=== PATIENT | female | born 1955 | race Caucasian/White ===

== ENCOUNTER 2023-01-19 06:21 | Inpatient (IN) ==
[2023-01-19] MEDS ORDERED: DUONEB 0.5 MG/3 MG (3 mL) NEB ONE ×3 (06:24→08:52)
--- NOTE | 2023-01-19 06:24 | DR.SOBA ---
HPI Time Seen Time Seen by Provider: 01/19/23 06:24 HPI Comment HPI Comment: 67 y/o with copd on chronic oxygen usually at 2lpm developed acutely worsening sob earlier this morning upon awakening from sleep; daughter says she's had a slight cough and started using theraflu two days ago; she admits to some wheezing and body aches as well; no fever, chills, cp, abd pain, n/v/d she's turned up oxygen to 3 lpm and drops to 77% while getting into ER room ROS Review of Systems Constitutional: No Symptoms Reported Eyes: No Symptoms Reported ENTM: No Symptoms Reported Respiratoy: See HPI Cardiovascular: No Symptoms Reported Gastrointestinal/Abdominal: No Symptoms Reported Genitourinary: No Symptoms Reported Neurological: No Symptoms Reported Musculoskeletal: See HPI and Muscle Pain Integumentary: No Symptoms Reported Hematologic/Lymphatic: No Symptoms Reported Endocrine: No Symptoms Reported Psychiatric: No Symptoms Reported PE Vital Signs Vitals: Vital Signs Temperature 99.3 F Pulse Rate 95 Pulse Rate 89 Pulse Rate 88 Pulse Rate 89 Pulse Rate 92 Pulse Rate 90 Pulse Rate 90 Pulse Rate 95 Pulse Rate 100 Respiratory Rate 32 Blood Pressure 127/63 Blood Pressure 128/63 Blood Pressure 145/66 O2 Sat by Pulse Oximetry 86 O2 Sat by Pulse Oximetry 90 O2 Sat by Pulse Oximetry 90 O2 Sat by Pulse Oximetry 91 O2 Sat by Pulse Oximetry 90 O2 Sat by Pulse Oximetry 93 O2 Sat by Pulse Oximetry 95 O2 Sat by Pulse Oximetry 91 O2 Sat by Pulse Oximetry 76 General Limitations: No Limitations General Appearance: Alert and In No Apparent Distress (nasal oxygen in place) Head Head Exam: Normal Inspection Eyes Eye exam: Normal Appearance ENT ENT Exam: Normal Exam Neck Neck Exam: Normal Inspection Chest Chest Inspection: Normal Inspection Respiratory Respiratory Exam: Bilateral: Decreased Breath Sounds, Left: Wheezing (scattered), Upper: Wheezing (scattered) and Lower: Wheezing (scattered) Cardiovascular Cardiovascular Exam: Regular Rate and Normal Rhythm Abdominal Exam Abdominal Exam: Normal Inspection, Normal Bowel Sounds and Soft Extremities Extremities Exam: Normal Inspection Back Back Exam: Normal Inspection Neurologic Neurological Exam: Alert and Oriented X3 Psychiatric Psychiatric Exam: Normal Affect and Normal Mood Skin Skin Exam: Warm, Dry, Intact and Normal Color COURSE Treatment Treatment: pt unable to lay flat enough to get ct Reevaluation 1st: Worsened (sats down to 88% on 5L) Consultation Call Returned: 07:50 (Dr De Dios accepts admission) ROR Labs Reviewed Laboratory Results Reviewed?: Yes 01/19/23 06:36 01/19/23 06:36 Laboratory: WBC 17.1 X10^3/uL (3.6-10.0) H 01/19/23 06:36 RBC 3.59 X10^6/uL (3.5-5.4) 01/19/23 06:36 Hgb 10.3 g/dL (12.0-16.0) L 01/19/23 06:36 Hct 31.7 % (36.0-47.0) L 01/19/23 06:36 MCV 88.3 fL (80.0-100.0) 01/19/23 06:36 MCH 28.7 pg (27.0-34.0) 01/19/23 06:36 MCHC 32.5 g/dL (33.0-35.0) L 01/19/23 06:36 RDW 16.1 % (11.6-16.5) 01/19/23 06:36 Plt Count 275 X10^3/uL (150.0-450.0) 01/19/23 06:36 MPV 7.7 fL (7.4-11.0) 01/19/23 06:36 Neut % (Auto) 89.1 % (42.0-75.0) H 01/19/23 06:36 Lymph % (Auto) 5.0 % (21.0-51.0) L 01/19/23 06:36 [place] % (Auto) 3.5 % (0.0-13.0) 01/19/23 06:36 Eos % (Auto) 1.6 % (0.9-2.9) 01/19/23 06:36 Baso % (Auto) 0.8 % (0.2-1.0) 01/19/23 06:36 Neut # (Auto) 15.2 x10^3/uL (2.2-4.8) H 01/19/23 06:36 Lymph # (Auto) 0.8 X10^3/uL (1.3-2.9) L 01/19/23 06:36 [place] # (Auto) 0.6 x10^3/uL (0.3-0.8) 01/19/23 06:36 Eos # (Auto) 0.3 x10^3/uL (0.0-0.2) H 01/19/23 06:36 Baso # (Auto) 0.1 X10^3/uL (0.0-0.1) 01/19/23 06:36 Absolute Nucleated RBC 0.3 /100WBC 01/19/23 06:36 D-Dimer 0.67 ug/ml (0.0-0.57) H 01/19/23 06:36 Sodium 138 mmol/L (136-145) 01/19/23 06:36 Corrected Sodium 140 mmol/L (136-145) 01/19/23 06:36 Potassium 4.8 mmol/L (3.5-5.1) 01/19/23 06:36 Chloride 100 mmol/L (98-107) 01/19/23 06:36 Carbon Dioxide 28.2 mmol/L (21-32) 01/19/23 06:36 BUN 29 mg/dL (7-18) H 01/19/23 06:36 Creatinine 1.79 mg/dL (0.55-1.02) H 01/19/23 06:36 Est GFR (MDRD) Af Amer 36 (>60) L 01/19/23 06:36 Est GFR (MDRD) Non-Af 30 (>60) L 01/19/23 06:36 Glucose 170 mg/dL (65-99) H 01/19/23 06:36 Lactic Acid 0.6 mmol/L (0.4-2.0) 01/19/23 07:11 Calcium 8.6 mg/dL (8.5-10.1) 01/19/23 06:36 Corrected Calcium 9.2 mg/dL (8.5-10.1) 01/19/23 06:36 Total Bilirubin 0.30 mg/dL (0.2-1.0) 01/19/23 06:36 AST 11 Units/L (15-37) L 01/19/23 06:36 ALT 20 Units/L (12-78) 01/19/23 06:36 Alkaline Phosphatase 64 Units/L (46-116) 01/19/23 06:36 Total Protein 6.8 g/dL (6.4-8.2) 01/19/23 06:36 Albumin 3.2 g/dL (3.4-5.0) L 01/19/23 06:36 Globulin 3.6 g/dL (2.5-4.5) 01/19/23 06:36 Albumin/Globulin Ratio 0.9 Ratio (1.1-2.1) L 01/19/23 06:36 SARS-CoV-2 (PCR) Negative (NEGATIVE) 01/19/23 06:20 Influenza Type A (PCR) Negative (NEGATIVE) 01/19/23 06:20 Influenza Type B (PCR) Negative (NEGATIVE) 01/19/23 06:20 RSV (PCR) Negative (NEGATIVE) 01/19/23 06:20 Other Results Comments: Pt unable to lay flat enough to get ct; both she and family member advised of admission. XRAY XRAY Interpreted by: Radiologist X-ray Results: pcxr: Cardiomegaly. Patchy bibasilar opacities may represent atelectasis or pneumonia. Blunted right costophrenic sulcus can be seen with small pleural effusion or pleuro-parynchemal scarring. Opioid Opioid Risk Tool Total: 0 Total Score Risk Category: Low Risk Copyright: [facility] predicting aberrant behaviors Discharge Plan Diagnosis Discharge Problem: COPD exacerbation, Hypoxia Sepsis Qualifiers: Sepsis type: sepsis due to unspecified organism Sepsis acute organ dysfunction status: with acute organ dysfunction Severe sepsis acute organ dysfunction type: acute respiratory failure Acute respiratory failure type: with hypoxia Pneumonia Qualifiers: Pneumonia type: due to unspecified organism Laterality: bilateral Lung location: lower lobe of lung Qualified Code(s): J18.9 - Pneumonia, unspecified organism Discharge Plan Patient Disposition: ADMITTED INPATIENT Condition: Stable Health Concerns: Post Hospitalization: new medications and changes needed to prevent readmission or further decline. Pt educated and given instructions on all concerns. Plan of Treatment: Continue with present treatment and follow up plan. Pt is to keep follow up appointment as instructed and take medications as ordered. Follow ups/Referrals Follow ups/Referrals: DORINDAD,None [Primary Care Provider] - 3 days
[2023-01-19 06:31] VITALS: BMI 42.5
[2023-01-19] MEDS ORDERED: SOLU-Medrol 125 MG VIAL ONE (06:32)
[2023-01-19] MEDS ORDERED: SOLU-Medrol 125 MG VIAL IVP ONE (06:36)
[2023-01-19 06:49] LABS: BASOPHILS # (AUTO) 0.1 X10^3/uL (0.0-0.1); BASOPHILS % (AUTO) 0.8 % (0.2-1.0); EOSINOPHILS # (AUTO) 0.3 x10^3/uL (0.0-0.2); EOSINOPHILS % (AUTO) 1.6 % (0.9-2.9); HEMATOCRIT 31.7 % (36.0-47.0); HEMOGLOBIN 10.3 g/dL (12.0-16.0); LYMPHOCYTES # (AUTO) 0.8 X10^3/uL (1.3-2.9); MEAN CORPUSCULAR HEMOGLOBIN 28.7 pg (27.0-34.0); MEAN CORPUSCULAR HGB CONC 32.5 g/dL (33.0-35.0); MEAN CORPUSCULAR VOLUME 88.3 fL (80.0-100.0); MEAN PLATELET VOLUME 7.7 fL (7.4-11.0); MONOCYTES # (AUTO) 0.6 x10^3/uL (0.3-0.8); MONOCYTES % (AUTO) 3.5 % (0.0-13.0); NEUTROPHILS # (AUTO) 15.2 x10^3/uL (2.2-4.8); NEUTROPHILS % (AUTO) 89.1 % (42.0-75.0); PLATELET COUNT 275 X10^3/uL (150.0-450.0); RED BLOOD COUNT 3.59 X10^6/uL (3.5-5.4); RED CELL DISTRIBUTION WIDTH 16.1 % (11.6-16.5); WHITE BLOOD COUNT 17.1 X10^3/uL (3.6-10.0)
[2023-01-19] MEDS ORDERED: ZITHROMAX INJ 500 MG VIAL 500 MG in NS 250 ML IV 250 ML IV SCH (06:59)
--- NOTE | 2023-01-19 06:59 | RAD ---
HISTORYPATIENT C/O INCREASED SHORTNESS OF BREATH THAT STARTED THIS MORNING AROUND 3AM. PT DENIES CHEST PAIN OR BODY ACHESSTUDYCHEST, 1 VIEWCOMPARISONNoneTECHNIQUEPA or AP view of the chestFINDINGSPatient is rotated. Cardiac silhouette is enlarged. Mediastinal contour is likely normal limited given rotation. There is blunting of the right costophrenic sulcus. Patchy bibasilar opacities are present. No pneumothorax. Soft tissue attenuation limits evaluation.IMPRESSIONCardiomegaly.Patchy bibasilar opacities may represent atelectasis or pneumonia. Blunted right costophrenic sulcus can be seen with small pleural effusion or pleuro-parynchemal scarring.Electronically signed by: Jamie Deluna (Jan 19, 2023 06:58:07)
[2023-01-19] MEDS ORDERED: NS 250 ML IV 250 ML IV ONE (07:02)
[2023-01-19] MEDS ORDERED: ZITHROMAX INJ 500 MG VIAL IV ONE (07:02)
[2023-01-19 07:06] LABS: ALBUMIN 3.2 g/dL (3.4-5.0); CALCIUM 8.6 mg/dL (8.5-10.1); CARBON DIOXIDE 28.2 mmol/L (21-32); COR CA(FOR HYPOALB) 9.2 mg/dL (8.5-10.1); CREATININE 1.79 mg/dL (0.55-1.02); POTASSIUM 4.8 mmol/L (3.5-5.1); TOTAL PROTEIN 6.8 g/dL (6.4-8.2)
[2023-01-19] MEDS ORDERED: NS 1,000 ML IV 1,000 ML IV ONE (07:29)
[2023-01-19] MEDS ORDERED: NS 1,000 ML IV 1,000 ML ONE (07:32)
[2023-01-19] MEDS ORDERED: NS 1,000 ML IV 1,000 ML IV SCH (08:00)
[2023-01-19] MEDS ORDERED: CONSULT PHARMACY - POTASSIUM & MAGNESIUM XX SCH (08:00)
[2023-01-19] MEDS ORDERED: PULMICORT NEB TX 0.5 MG NEB ONE (08:52)
[2023-01-19 09:00] LABS: ABG BASE EXCESS 1.4 mmol/L (-2.0-2.0); ABG HCO3 29.3 mmol/L (22-26)
[2023-01-19] MEDS: PULMICORT NEB TX 0.5 MG NEB SCH ×2 (09:00→20:48)
[2023-01-19] MEDS: DUONEB 0.5 MG/3 MG (3 mL) NEB SCH ×4 (09:00→20:48)
[2023-01-19 09:01] LABS: ABG ALLEN TEST POS
[2023-01-19] MEDS ORDERED: ZOSYN VIAL 4.5 GRAMS 4.5 G in NS 100 ML IV + SPIKE MINIBAG* 100 ML IV SCH (10:00)
[2023-01-19] MEDS ORDERED: NS 1/2 1,000 ML IV 1,000 ML IV ONE ×2 (10:18→20:13)
[2023-01-19] MEDS: VSL#3 PO SCH (10:32)
[2023-01-19] MEDS: BENICAR PO SCH (10:32)
[2023-01-19] MEDS: COREG TAB 12.5 MG PO SCH ×2 (10:33→20:35)
[2023-01-19] MEDS: DEMADEX PO SCH (10:33)
[2023-01-19] MEDS: ALDACTONE TAB 25 MG PO SCH (10:33)
[2023-01-19] MEDS: ARIMIDEX PO SCH (10:33)
[2023-01-19] MEDS: NORVASC TAB 5 MG PO SCH (10:33)
[2023-01-19] MEDS: PREDNISONE TAB 10 MG PO SCH (10:34)
[2023-01-19] MEDS: CATAPRES TAB 0.2 MG PO SCH ×2 (10:34→20:35)
[2023-01-19] MEDS: NS 1/2 1,000 ML IV 1,000 ML IV SCH (10:35)
[2023-01-19] MEDS: FORTAZ or TAZICEF VIAL INJ 1 G in NS 100 ML IV 100 ML IV SCH ×2 (10:36→20:35)
[2023-01-19] MEDS: LEVAQUIN PREMIX IV 750 MG 750 MG/150 ML BAG IV SCH (10:37)
[2023-01-19] MEDS: TRADJENTA PO SCH (11:43)
--- NOTE | 2023-01-19 15:28 | RAD ---
HISTORYPNEUMONIA UNABLE TO POSTION PATIENT FOR A FAVORABLE LATERALSTUDYCHEST, 1 VIEWCOMPARISONRadiograph from earlier the same date.FINDINGSCardiac silhouette size is stable, accounting for differences in positioning. Patchy bibasilar opacities are similar to the prior. There is unchanged blunting of the right costophrenic sulcus. No significant pneumothorax.IMPRESSIONNo significant change from the prior.Electronically signed by: SHORTY BROWER (Jan 19, 2023 15:26:38)
[2023-01-19] MEDS ORDERED: NovoLIN R (or HumuLIN R) ONE (16:03)
[2023-01-19] MEDS: NovoLIN R (or HumuLIN R) SUBCUT PRN ×2 (16:31→20:36)
[2023-01-19] MEDS: LOVENOX INJ 40 MG SYR SC SCH (16:31)
[2023-01-19] MEDS: SNACK - Diabetic Appropriate PO SCH (20:35)
[2023-01-19] MEDS: LIPITOR TAB 10 MG PO SCH (20:35)
[2023-01-19] MEDS: SINGULAIR TAB 10 MG PO SCH (20:35)
[2023-01-20] MEDS: DUONEB 0.5 MG/3 MG (3 mL) NEB SCH ×6 (01:14→20:34)
[2023-01-20] MEDS: NS 1/2 1,000 ML IV 1,000 ML IV SCH (04:48)
[2023-01-20 05:08] LABS: BASOPHILS % (AUTO) 0.1 % (0.2-1.0); HEMATOCRIT 28.4 % (36.0-47.0); HEMOGLOBIN 9.4 g/dL (12.0-16.0); LYMPHOCYTES # (AUTO) 0.8 X10^3/uL (1.3-2.9); MEAN CORPUSCULAR HEMOGLOBIN 28.9 pg (27.0-34.0); MEAN CORPUSCULAR VOLUME 87.6 fL (80.0-100.0); MEAN PLATELET VOLUME 7.8 fL (7.4-11.0); NEUTROPHILS # (AUTO) 14.7 x10^3/uL (2.2-4.8); NEUTROPHILS % (AUTO) 88.9 % (42.0-75.0); PLATELET COUNT 294 X10^3/uL (150.0-450.0); RED BLOOD COUNT 3.24 X10^6/uL (3.5-5.4); RED CELL DISTRIBUTION WIDTH 15.6 % (11.6-16.5); WHITE BLOOD COUNT 16.6 X10^3/uL (3.6-10.0)
[2023-01-20 05:18] LABS: ALBUMIN 2.8 g/dL (3.4-5.0); CALCIUM 8.1 mg/dL (8.5-10.1); CARBON DIOXIDE 28.6 mmol/L (21-32); COR CA(FOR HYPOALB) 9.1 mg/dL (8.5-10.1); CREATININE 1.64 mg/dL (0.55-1.02); POTASSIUM 4.8 mmol/L (3.5-5.1); TOTAL PROTEIN 6.3 g/dL (6.4-8.2)
[2023-01-20] MEDS ORDERED: SOLU-Medrol 125 MG VIAL IVP ONE (07:00)
[2023-01-20] MEDS: PULMICORT NEB TX 0.5 MG NEB SCH ×2 (08:13→20:34)
[2023-01-20] MEDS ORDERED: NS 1/2 1,000 ML IV 1,000 ML IV ONE (08:31)
[2023-01-20] MEDS: NORVASC TAB 5 MG PO SCH (08:43)
[2023-01-20] MEDS: FORTAZ or TAZICEF VIAL INJ 1 G in NS 100 ML IV 100 ML IV SCH ×2 (08:43→20:05)
[2023-01-20] MEDS: BENICAR PO SCH (08:43)
[2023-01-20] MEDS: ARIMIDEX PO SCH (08:43)
[2023-01-20] MEDS: PREDNISONE TAB 10 MG PO SCH (08:43)
[2023-01-20] MEDS: CATAPRES TAB 0.2 MG PO SCH ×2 (08:43→20:05)
[2023-01-20] MEDS: COREG TAB 12.5 MG PO SCH ×2 (08:43→20:05)
[2023-01-20] MEDS: LOVENOX INJ 40 MG SYR SC SCH (08:43)
[2023-01-20] MEDS: ALDACTONE TAB 25 MG PO SCH (08:43)
[2023-01-20] MEDS: DEMADEX PO SCH (08:43)
[2023-01-20] MEDS: VSL#3 PO SCH (08:44)
[2023-01-20] MEDS: TRADJENTA PO SCH (08:44)
[2023-01-20] MEDS ORDERED: ZITHROMAX INJ 500 MG VIAL 500 MG in NS 250 ML IV 250 ML IV SCH (09:00)
[2023-01-20 09:17] LABS: RETICULOCYTE % 3.12 % (0.8-2.2)
[2023-01-20] MEDS: LR 1,000 ML IV 1,000 ML IV SCH ×3 (09:26→22:54)
[2023-01-20] MEDS: NovoLIN R (or HumuLIN R) SUBCUT PRN (11:17)
[2023-01-20] MEDS ORDERED: PEPCID TAB 20 MG PO SCH (20:00)
[2023-01-20] MEDS: LIPITOR TAB 10 MG PO SCH (20:05)
[2023-01-20] MEDS: SINGULAIR TAB 10 MG PO SCH (20:05)
[2023-01-20] MEDS: SNACK - Diabetic Appropriate PO SCH (20:08)
[2023-01-21] MEDS ORDERED: STERILE WATER IRRIGATION IR ONE (00:13)
[2023-01-21] MEDS: DUONEB 0.5 MG/3 MG (3 mL) NEB SCH ×7 (00:26→20:15)
[2023-01-21] MEDS: LR 1,000 ML IV 1,000 ML IV SCH ×3 (05:33→18:44)
[2023-01-21 05:40] LABS: BASOPHILS # (AUTO) 0.2 X10^3/uL (0.0-0.1); BASOPHILS % (AUTO) 1.4 % (0.2-1.0); EOSINOPHILS # (AUTO) 0.2 x10^3/uL (0.0-0.2); EOSINOPHILS % (AUTO) 1.3 % (0.9-2.9); HEMATOCRIT 29.2 % (36.0-47.0); HEMOGLOBIN 9.6 g/dL (12.0-16.0); LYMPHOCYTES # (AUTO) 1.3 X10^3/uL (1.3-2.9); LYMPHOCYTES % (AUTO) 10.2 % (21.0-51.0); MEAN CORPUSCULAR HEMOGLOBIN 28.7 pg (27.0-34.0); MEAN CORPUSCULAR HGB CONC 32.8 g/dL (33.0-35.0); MEAN CORPUSCULAR VOLUME 87.5 fL (80.0-100.0); MEAN PLATELET VOLUME 8.2 fL (7.4-11.0); MONOCYTES # (AUTO) 0.8 x10^3/uL (0.3-0.8); MONOCYTES % (AUTO) 5.9 % (0.0-13.0); NEUTROPHILS # (AUTO) 10.6 x10^3/uL (2.2-4.8); NEUTROPHILS % (AUTO) 81.2 % (42.0-75.0); PLATELET COUNT 289 X10^3/uL (150.0-450.0); RED BLOOD COUNT 3.34 X10^6/uL (3.5-5.4); RED CELL DISTRIBUTION WIDTH 16.1 % (11.6-16.5); WHITE BLOOD COUNT 13.1 X10^3/uL (3.6-10.0)
[2023-01-21 05:58] LABS: ALBUMIN 2.9 g/dL (3.4-5.0); CALCIUM 8.1 mg/dL (8.5-10.1); CARBON DIOXIDE 30.2 mmol/L (21-32); CREATININE 1.59 mg/dL (0.55-1.02); POTASSIUM 4.8 mmol/L (3.5-5.1); TOTAL PROTEIN 6.4 g/dL (6.4-8.2)
[2023-01-21] MEDS: PULMICORT NEB TX 0.5 MG NEB SCH ×3 (07:53→20:15)
[2023-01-21] MEDS: CATAPRES TAB 0.2 MG PO SCH ×2 (09:36→21:13)
[2023-01-21] MEDS: NORVASC TAB 5 MG PO SCH (09:36)
[2023-01-21] MEDS: LEVAQUIN PREMIX IV 750 MG 750 MG/150 ML BAG IV SCH (09:36)
[2023-01-21] MEDS: FORTAZ or TAZICEF VIAL INJ 1 G in NS 100 ML IV 100 ML IV SCH ×2 (09:36→21:13)
[2023-01-21] MEDS: VSL#3 PO SCH (09:36)
[2023-01-21] MEDS: BENICAR PO SCH (09:36)
[2023-01-21] MEDS: DEMADEX PO SCH (09:36)
[2023-01-21] MEDS: PEPCID TAB 20 MG PO SCH (09:36)
[2023-01-21] MEDS: ARIMIDEX PO SCH (09:36)
[2023-01-21] MEDS: COREG TAB 12.5 MG PO SCH ×2 (09:37→21:13)
[2023-01-21] MEDS: ALDACTONE TAB 25 MG PO SCH (09:37)
[2023-01-21] MEDS: LOVENOX INJ 40 MG SYR SC SCH (09:37)
[2023-01-21] MEDS: PREDNISONE TAB 10 MG PO SCH (09:37)
[2023-01-21] MEDS: TRADJENTA PO SCH (09:38)
[2023-01-21] MEDS: NovoLIN R (or HumuLIN R) SUBCUT PRN ×3 (12:16→21:30)
[2023-01-21] MEDS: SNACK - Diabetic Appropriate PO SCH (20:30)
[2023-01-21] MEDS: LIPITOR TAB 10 MG PO SCH (21:13)
[2023-01-21] MEDS: SINGULAIR TAB 10 MG PO SCH (21:13)
[2023-01-22] MEDS: DUONEB 0.5 MG/3 MG (3 mL) NEB SCH ×3 (00:24→08:45)
[2023-01-22] MEDS: LR 1,000 ML IV 1,000 ML IV SCH ×2 (03:31→09:04)
[2023-01-22 05:29] LABS: BASOPHILS # (AUTO) 0.1 X10^3/uL (0.0-0.1); BASOPHILS % (AUTO) 0.7 % (0.2-1.0); EOSINOPHILS # (AUTO) 0.2 x10^3/uL (0.0-0.2); EOSINOPHILS % (AUTO) 1.9 % (0.9-2.9); HEMATOCRIT 29.6 % (36.0-47.0); LYMPHOCYTES # (AUTO) 1.2 X10^3/uL (1.3-2.9); LYMPHOCYTES % (AUTO) 11.3 % (21.0-51.0); MEAN CORPUSCULAR HEMOGLOBIN 29.2 pg (27.0-34.0); MEAN CORPUSCULAR HGB CONC 33.6 g/dL (33.0-35.0); MEAN CORPUSCULAR VOLUME 86.9 fL (80.0-100.0); MEAN PLATELET VOLUME 7.6 fL (7.4-11.0); MONOCYTES # (AUTO) 0.8 x10^3/uL (0.3-0.8); MONOCYTES % (AUTO) 6.9 % (0.0-13.0); NEUTROPHILS # (AUTO) 8.6 x10^3/uL (2.2-4.8); NEUTROPHILS % (AUTO) 79.2 % (42.0-75.0); PLATELET COUNT 279 X10^3/uL (150.0-450.0); RED BLOOD COUNT 3.41 X10^6/uL (3.5-5.4); RED CELL DISTRIBUTION WIDTH 15.8 % (11.6-16.5); WHITE BLOOD COUNT 10.8 X10^3/uL (3.6-10.0)
[2023-01-22 05:49] LABS: ALBUMIN 2.7 g/dL (3.4-5.0); CALCIUM 8.3 mg/dL (8.5-10.1); CARBON DIOXIDE 30.5 mmol/L (21-32); COR CA(FOR HYPOALB) 9.3 mg/dL (8.5-10.1); CREATININE 1.45 mg/dL (0.55-1.02); POTASSIUM 4.5 mmol/L (3.5-5.1); TOTAL PROTEIN 6.1 g/dL (6.4-8.2)
[2023-01-22 08:24] VITALS: BP 173/85; PULSE 95; RESP 18; O2SAT 95
[2023-01-22] MEDS: PULMICORT NEB TX 0.5 MG NEB SCH (08:45)
[2023-01-22] MEDS: ARIMIDEX PO SCH (09:03)
[2023-01-22] MEDS: PEPCID TAB 20 MG PO SCH (09:03)
[2023-01-22] MEDS: NORVASC TAB 5 MG PO SCH (09:03)
[2023-01-22] MEDS: FORTAZ or TAZICEF VIAL INJ 1 G in NS 100 ML IV 100 ML IV SCH (09:03)
[2023-01-22] MEDS: COREG TAB 12.5 MG PO SCH (09:03)
[2023-01-22] MEDS: VSL#3 PO SCH (09:04)
[2023-01-22] MEDS: LOVENOX INJ 40 MG SYR SC SCH (09:04)
[2023-01-22] MEDS: ALDACTONE TAB 25 MG PO SCH (09:04)
[2023-01-22] MEDS: BENICAR PO SCH (09:04)
[2023-01-22] MEDS: PREDNISONE TAB 10 MG PO SCH (09:04)
[2023-01-22] MEDS: DEMADEX PO SCH (09:04)
[2023-01-22] MEDS: CATAPRES TAB 0.2 MG PO SCH (09:04)
[2023-01-22] MEDS: TRADJENTA PO SCH (09:08)
[2023-01-22 12:34] VITALS: TEMP 98.4
--- NOTE | 2023-01-22 22:42 | W.DIS.FURT ---
Summary of Discharge Discharge Summary of Date Date of Exam: 01/22/23 Admission Date Date of Admission: 01/19/23 Admission Diagnosis Patient Problems (Updated 01/19/23 @ 08:02 by Jenifer Aranda) Sepsis (Acute) A41.9 Pneumonia (Acute) J18.9 COPD exacerbation (Acute) J44.1 Hypoxia (Acute) R09.02 Hospital Course: Patient is a 67-year-old female admitted for pneumonia and COPD exacerbation. Her hospital treatment course included antibiotics Levaquin and Fortaz. She required supplemental oxygen via nasal cannula. Scheduled bronchodilators and prednisone. Patient responded well to treatment and symptoms significantly improved. On the day of discharge patient was back to to her baseline oxygen requirement of 2-3 L nasal cannula. Rx Levaquin and prednisone. Patient discharged in stable condition. Instructed to follow-up with PCP in 1 week. Vital Signs: Vital Signs (72 hours) 01/19/23 12:00 01/19/23 12:00 01/19/23 13:15 Temperature 97.7 F Pulse Rate 82 82 Respiratory Rate 33 H Blood Pressure 138/69 O2 Sat by Pulse Oximetry 94 L 100 Oxygen Delivery Method Oxygen Flow Rate FIO2% 01/19/23 13:00 01/19/23 13:00 01/19/23 14:00 Temperature Pulse Rate 82 89 Respiratory Rate 30 H 30 H Blood Pressure 131/68 O2 Sat by Pulse Oximetry 95 92 L Oxygen Delivery Method Oxygen Flow Rate FIO2% 01/19/23 14:00 01/19/23 15:00 01/19/23 15:00 Temperature 97.0 F L Pulse Rate 79 Respiratory Rate 30 H Blood Pressure 140/72 140/67 O2 Sat by Pulse Oximetry 92 L Oxygen Delivery Method Oxygen Flow Rate FIO2% 01/19/23 16:07 01/19/23 16:11 01/19/23 16:11 Temperature Pulse Rate 86 Respiratory Rate Blood Pressure 160/79 160/79 O2 Sat by Pulse Oximetry 94 L Oxygen Delivery Method Oxygen Flow Rate FIO2% 01/19/23 16:11 01/19/23 17:00 01/19/23 17:00 Temperature Pulse Rate 79 95 H Respiratory Rate 19 33 H Blood Pressure 167/90 O2 Sat by Pulse Oximetry 94 L 93 L Oxygen Delivery Method Oxygen Flow Rate FIO2% 01/19/23 18:00 01/19/23 18:00 01/19/23 18:02 Temperature Pulse Rate 92 H 93 H Respiratory Rate 31 H 29 H Blood Pressure 195/107 O2 Sat by Pulse Oximetry 93 L 93 L Oxygen Delivery Method Oxygen Flow Rate FIO2% 01/19/23 18:02 01/19/23 18:04 01/19/23 18:04 Temperature Pulse Rate 93 H Respiratory Rate 30 H Blood Pressure 183/108 192/119 O2 Sat by Pulse Oximetry 92 L Oxygen Delivery Method Oxygen Flow Rate FIO2% 01/19/23 19:00 01/19/23 18:53 01/19/23 18:53 Temperature Pulse Rate 91 H Respiratory Rate 33 H Blood Pressure 189/83 O2 Sat by Pulse Oximetry 93 L Oxygen Delivery Method Bi-pap Oxygen Flow Rate FIO2% 01/19/23 19:00 01/19/23 19:00 01/19/23 20:00 Temperature Pulse Rate 85 Respiratory Rate 26 H Blood Pressure 154/72 168/78 O2 Sat by Pulse Oximetry 94 L Oxygen Delivery Method Oxygen Flow Rate FIO2% 01/19/23 20:00 01/19/23 21:00 01/19/23 21:00 Temperature 97.1 F L Pulse Rate 81 87 Respiratory Rate 30 H 30 H Blood Pressure 189/86 O2 Sat by Pulse Oximetry 95 97 Oxygen Delivery Method Oxygen Flow Rate FIO2% 01/19/23 21:02 01/19/23 21:02 01/19/23 22:00 Temperature Pulse Rate 86 97 H Respiratory Rate 33 H 36 H Blood Pressure 170/87 O2 Sat by Pulse Oximetry 96 96 Oxygen Delivery Method Oxygen Flow Rate FIO2% 01/19/23 22:15 01/19/23 22:15 01/19/23 22:17 Temperature Pulse Rate 95 H 93 H Respiratory Rate 28 H 26 H Blood Pressure 189/103 O2 Sat by Pulse Oximetry 94 L 95 Oxygen Delivery Method Oxygen Flow Rate FIO2% 01/19/23 22:17 01/19/23 22:18 01/19/23 22:18 Temperature Pulse Rate 92 H Respiratory Rate 28 H Blood Pressure 189/103 192/94 O2 Sat by Pulse Oximetry 95 Oxygen Delivery Method Oxygen Flow Rate FIO2% 01/19/23 22:38 01/19/23 22:38 01/19/23 23:00 Temperature Pulse Rate 84 83 Respiratory Rate 29 H 25 H Blood Pressure 140/66 O2 Sat by Pulse Oximetry 94 L 93 L Oxygen Delivery Method Oxygen Flow Rate FIO2% 01/20/23 00:00 01/19/23 20:48 01/19/23 20:48 Temperature 97.6 F Pulse Rate 77 Respiratory Rate 26 H Blood Pressure O2 Sat by Pulse Oximetry 97 Oxygen Delivery Method Bi-pap Oxygen Flow Rate FIO2% 35 35 01/19/23 20:48 01/20/23 00:01 01/20/23 00:01 Temperature Pulse Rate 87 76 Respiratory Rate 24 Blood Pressure 133/62 O2 Sat by Pulse Oximetry 96 97 Oxygen Delivery Method Oxygen Flow Rate FIO2% 01/20/23 01:00 01/20/23 01:14 01/20/23 01:14 Temperature Pulse Rate 100 H 71 Respiratory Rate 39 H Blood Pressure O2 Sat by Pulse Oximetry 95 97 Oxygen Delivery Method Oxygen Flow Rate FIO2% 35 01/20/23 02:00 01/20/23 03:00 01/20/23 04:00 Temperature Pulse Rate 70 85 75 Respiratory Rate 18 30 H 25 H Blood Pressure O2 Sat by Pulse Oximetry 94 L 90 L 97 Oxygen Delivery Method Oxygen Flow Rate FIO2% 01/20/23 04:00 01/20/23 05:00 01/20/23 05:44 Temperature 97.6 F Pulse Rate 72 Respiratory Rate 27 H Blood Pressure 151/70 O2 Sat by Pulse Oximetry 93 L Oxygen Delivery Method Oxygen Flow Rate FIO2% 35 01/20/23 05:44 01/20/23 06:00 01/20/23 07:00 Temperature Pulse Rate 75 79 75 Respiratory Rate 26 H 18 Blood Pressure O2 Sat by Pulse Oximetry 98 97 93 L Oxygen Delivery Method Oxygen Flow Rate FIO2% 01/20/23 08:13 01/20/23 08:13 01/20/23 08:00 Temperature Pulse Rate 77 82 Respiratory Rate 26 H Blood Pressure O2 Sat by Pulse Oximetry 93 L 93 L Oxygen Delivery Method Bi-pap Oxygen Flow Rate 4 FIO2% 36 01/20/23 09:00 01/20/23 09:04 01/20/23 09:04 Temperature 97.4 F L Pulse Rate 81 93 H Respiratory Rate 25 H 32 H Blood Pressure 146/69 O2 Sat by Pulse Oximetry 93 L 93 L Oxygen Delivery Method Oxygen Flow Rate FIO2% 01/20/23 07:00 01/20/23 10:00 01/20/23 11:00 Temperature Pulse Rate 83 91 H Respiratory Rate 29 H 30 H Blood Pressure O2 Sat by Pulse Oximetry 88 L 94 L Oxygen Delivery Method Nasal Cannula Oxygen Flow Rate 4 FIO2% 01/20/23 12:00 01/20/23 12:00 01/20/23 13:00 Temperature 98.0 F Pulse Rate 75 80 Respiratory Rate 28 H 30 H Blood Pressure 138/70 O2 Sat by Pulse Oximetry 96 93 L Oxygen Delivery Method Oxygen Flow Rate FIO2% 01/20/23 14:10 01/20/23 14:10 01/20/23 14:00 Temperature Pulse Rate 99 H Respiratory Rate 40 H Blood Pressure O2 Sat by Pulse Oximetry 79 L Oxygen Delivery Method Bi-pap Oxygen Flow Rate FIO2% 35 35 01/20/23 14:15 01/20/23 14:15 01/20/23 15:00 Temperature Pulse Rate 75 70 Respiratory Rate 29 H 54 H Blood Pressure 119/67 O2 Sat by Pulse Oximetry 96 90 L Oxygen Delivery Method Oxygen Flow Rate FIO2% 01/20/23 15:38 01/20/23 15:38 01/20/23 16:00 Temperature Pulse Rate 78 70 Respiratory Rate 25 H 30 H Blood Pressure 126/65 O2 Sat by Pulse Oximetry 97 94 L Oxygen Delivery Method Oxygen Flow Rate FIO2% 01/20/23 16:00 01/20/23 17:00 01/20/23 18:00 Temperature 97.2 F L Pulse Rate 103 H 87 Respiratory Rate 35 H 22 Blood Pressure 138/69 O2 Sat by Pulse Oximetry 94 L 91 L Oxygen Delivery Method Oxygen Flow Rate FIO2% 01/20/23 19:00 01/20/23 20:34 01/20/23 20:35 Temperature Pulse Rate 93 H 83 Respiratory Rate 36 H Blood Pressure O2 Sat by Pulse Oximetry 92 L 95 Oxygen Delivery Method Nasal Cannula Oxygen Flow Rate 4 FIO2% 36 01/20/23 19:00 01/20/23 20:00 01/20/23 20:03 Temperature 97.1 F L Pulse Rate 82 85 Respiratory Rate 32 H 26 H Blood Pressure O2 Sat by Pulse Oximetry 95 94 L Oxygen Delivery Method Nasal Cannula Oxygen Flow Rate 4 FIO2% 01/20/23 20:03 01/20/23 21:00 01/20/23 22:09 Temperature Pulse Rate 105 H Respiratory Rate 39 H Blood Pressure 149/66 O2 Sat by Pulse Oximetry 92 L Oxygen Delivery Method Oxygen Flow Rate FIO2% 35 01/20/23 22:10 01/20/23 22:00 01/20/23 23:00 Temperature 97.4 F L Pulse Rate 89 63 Respiratory Rate 31 H 28 H Blood Pressure O2 Sat by Pulse Oximetry 95 96 Oxygen Delivery Method Bi-pap Oxygen Flow Rate FIO2% 35 01/21/23 00:26 01/21/23 00:27 01/21/23 01:20 Temperature Pulse Rate 85 Respiratory Rate Blood Pressure O2 Sat by Pulse Oximetry 97 Oxygen Delivery Method CPAP Bi-pap Oxygen Flow Rate FIO2% 32 35 01/21/23 01:20 01/21/23 00:00 01/21/23 00:07 Temperature 97.4 F L Pulse Rate 78 82 Respiratory Rate 29 H 39 H Blood Pressure O2 Sat by Pulse Oximetry 94 L 98 Oxygen Delivery Method Oxygen Flow Rate FIO2% 35 01/21/23 00:07 01/21/23 01:00 01/21/23 02:00 Temperature Pulse Rate 62 68 Respiratory Rate 29 H 34 H Blood Pressure 146/63 O2 Sat by Pulse Oximetry 91 L 96 Oxygen Delivery Method Oxygen Flow Rate FIO2% 01/21/23 03:00 01/21/23 04:00 01/21/23 04:10 Temperature 97.6 F Pulse Rate 71 65 85 Respiratory Rate 33 H 26 H 41 H Blood Pressure O2 Sat by Pulse Oximetry 92 L 97 99 Oxygen Delivery Method Oxygen Flow Rate FIO2% 01/21/23 04:10 01/21/23 05:00 01/21/23 06:04 Temperature Pulse Rate 66 Respiratory Rate 28 H Blood Pressure 168/92 O2 Sat by Pulse Oximetry 98 Oxygen Delivery Method Oxygen Flow Rate FIO2% 35 01/21/23 06:00 01/21/23 06:00 01/21/23 07:00 Temperature Pulse Rate Respiratory Rate Blood Pressure O2 Sat by Pulse Oximetry 97 97 Oxygen Delivery Method Nasal Cannula Oxygen Flow Rate 4 FIO2% 01/21/23 06:00 01/21/23 07:00 01/21/23 07:31 Temperature 97.6 F Pulse Rate 74 66 Respiratory Rate 27 H 28 H Blood Pressure O2 Sat by Pulse Oximetry 89 L 94 L Oxygen Delivery Method Oxygen Flow Rate FIO2% 01/21/23 07:53 01/21/23 07:53 01/21/23 10:27 Temperature Pulse Rate Respiratory Rate Blood Pressure O2 Sat by Pulse Oximetry Oxygen Delivery Method Bi-pap Bi-pap Oxygen Flow Rate FIO2% 35 35 35 01/21/23 10:27 01/21/23 08:00 01/21/23 08:37 Temperature Pulse Rate 76 90 Respiratory Rate 31 H 32 H Blood Pressure O2 Sat by Pulse Oximetry 100 94 L Oxygen Delivery Method Oxygen Flow Rate FIO2% 35 01/21/23 08:37 01/21/23 09:00 01/21/23 10:00 Temperature Pulse Rate 75 110 H Respiratory Rate 25 H 42 H Blood Pressure 147/77 O2 Sat by Pulse Oximetry 96 82 L Oxygen Delivery Method Oxygen Flow Rate FIO2% 01/21/23 11:00 01/21/23 12:00 01/21/23 12:14 Temperature Pulse Rate 65 63 81 Respiratory Rate 31 H 29 H 34 H Blood Pressure O2 Sat by Pulse Oximetry 94 L 94 L 98 Oxygen Delivery Method Oxygen Flow Rate FIO2% 01/21/23 12:14 01/21/23 13:00 01/21/23 14:00 Temperature Pulse Rate 81 79 Respiratory Rate 35 H 24 Blood Pressure 135/78 O2 Sat by Pulse Oximetry 95 95 Oxygen Delivery Method Oxygen Flow Rate FIO2% 01/21/23 15:00 01/21/23 15:17 01/21/23 16:00 Temperature 97.4 F L Pulse Rate 66 72 Respiratory Rate 29 H 24 Blood Pressure O2 Sat by Pulse Oximetry 95 95 Oxygen Delivery Method Oxygen Flow Rate FIO2% 01/21/23 16:04 01/21/23 16:04 01/21/23 17:00 Temperature Pulse Rate 78 89 Respiratory Rate 30 H 30 H Blood Pressure 125/60 O2 Sat by Pulse Oximetry 96 93 L Oxygen Delivery Method Oxygen Flow Rate FIO2% 01/21/23 18:00 01/21/23 19:00 01/21/23 20:15 Temperature Pulse Rate 71 Respiratory Rate 26 H Blood Pressure O2 Sat by Pulse Oximetry 94 L Oxygen Delivery Method Nasal Cannula Nasal Cannula Oxygen Flow Rate 4 2 FIO2% 28 01/21/23 20:25 01/21/23 20:15 01/21/23 20:25 Temperature Pulse Rate 90 Respiratory Rate Blood Pressure O2 Sat by Pulse Oximetry 90 L Oxygen Delivery Method Bi-pap Oxygen Flow Rate FIO2% 35 35 01/21/23 20:00 01/22/23 00:12 01/22/23 00:00 Temperature 97.3 F L 98.0 F Pulse Rate 84 85 Respiratory Rate 30 H 31 H Blood Pressure 162/74 139/74 O2 Sat by Pulse Oximetry 98 98 Oxygen Delivery Method Bi-pap Oxygen Flow Rate FIO2% 35 01/22/23 04:27 01/22/23 04:29 01/22/23 04:00 Temperature 98.6 F Pulse Rate 94 H 90 Respiratory Rate 24 Blood Pressure 136/66 O2 Sat by Pulse Oximetry 99 100 Oxygen Delivery Method Oxygen Flow Rate FIO2% 35 01/22/23 08:00 01/22/23 08:45 01/22/23 07:00 Temperature Pulse Rate 95 H Respiratory Rate 18 Blood Pressure 173/85 O2 Sat by Pulse Oximetry 95 Oxygen Delivery Method Nasal Cannula Nasal Cannula Oxygen Flow Rate 2 3 FIO2% 28 Labs: Laboratory Last Values WBC 10.8 X10^3/uL (3.6-10.0) H 01/22/23 04:45 RBC 3.41 X10^6/uL (3.5-5.4) L 01/22/23 04:45 Hgb 10.0 g/dL (12.0-16.0) L 01/22/23 04:45 Hct 29.6 % (36.0-47.0) L 01/22/23 04:45 MCV 86.9 fL (80.0-100.0) 01/22/23 04:45 MCH 29.2 pg (27.0-34.0) 01/22/23 04:45 MCHC 33.6 g/dL (33.0-35.0) 01/22/23 04:45 RDW 15.8 % (11.6-16.5) 01/22/23 04:45 Plt Count 279 X10^3/uL (150.0-450.0) 01/22/23 04:45 MPV 7.6 fL (7.4-11.0) 01/22/23 04:45 Neut % (Auto) 79.2 % (42.0-75.0) H 01/22/23 04:45 Lymph % (Auto) 11.3 % (21.0-51.0) L 01/22/23 04:45 [place] % (Auto) 6.9 % (0.0-13.0) 01/22/23 04:45 Eos % (Auto) 1.9 % (0.9-2.9) 01/22/23 04:45 Baso % (Auto) 0.7 % (0.2-1.0) 01/22/23 04:45 Neut # (Auto) 8.6 x10^3/uL (2.2-4.8) H 01/22/23 04:45 Lymph # (Auto) 1.2 X10^3/uL (1.3-2.9) L 01/22/23 04:45 [place] # (Auto) 0.8 x10^3/uL (0.3-0.8) 01/22/23 04:45 Eos # (Auto) 0.2 x10^3/uL (0.0-0.2) 01/22/23 04:45 Baso # (Auto) 0.1 X10^3/uL (0.0-0.1) 01/22/23 04:45 Absolute Nucleated RBC 0.1 /100WBC 01/22/23 04:45 Absolute Retic 0.1020 10^6/uL 01/20/23 04:20 Percent Retic 3.12 % (0.8-2.2) H 01/20/23 04:20 D-Dimer 0.67 ug/ml (0.0-0.57) H 01/19/23 06:36 Sample Site Lrad 01/19/23 08:53 ABG pH 7.290 (7.35-7.45) L 01/19/23 08:53 ABG pCO2 61.0 mmHg (35.0-45.0) H* 01/19/23 08:53 ABG pO2 62.0 mmHg (80.0-100.0) L 01/19/23 08:53 ABG HCO3 29.3 mmol/L (22-26) H 01/19/23 08:53 ABG O2 Saturation 88.0 % (90-100) L 01/19/23 08:53 ABG Base Excess 1.4 mmol/L (-2.0-2.0) 01/19/23 08:53 Tucker Test Pos 01/19/23 08:53 A-a Gradient 147.0 mmHg 01/19/23 08:53 FiO2 40.0 01/19/23 08:53 Blood Gas Comments Pt roni well elj eb 01/19/23 08:53 Sodium 139 mmol/L (136-145) 01/22/23 04:45 Corrected Sodium 140 mmol/L (136-145) 01/22/23 04:45 Potassium 4.5 mmol/L (3.5-5.1) 01/22/23 04:45 Chloride 101 mmol/L (98-107) 01/22/23 04:45 Carbon Dioxide 30.5 mmol/L (21-32) 01/22/23 04:45 BUN 26 mg/dL (7-18) H 01/22/23 04:45 Creatinine 1.45 mg/dL (0.55-1.02) H 01/22/23 04:45 Est GFR (MDRD) Af Amer 46 (>60) L 01/22/23 04:45 Est GFR (MDRD) Non-Af 38 (>60) L 01/22/23 04:45 Glucose 131 mg/dL (65-99) H 01/22/23 04:45 Lactic Acid 0.6 mmol/L (0.4-2.0) 01/19/23 07:11 Calcium 8.3 mg/dL (8.5-10.1) L 01/22/23 04:45 Corrected Calcium 9.3 mg/dL (8.5-10.1) 01/22/23 04:45 Iron 34 ug/dL (50-175) L 01/20/23 04:20 Ferritin 56 ng/mL (8-252) 01/20/23 04:20 Total Bilirubin 0.20 mg/dL (0.2-1.0) 01/22/23 04:45 AST 18 Units/L (15-37) 01/22/23 04:45 ALT 13 Units/L (12-78) 01/22/23 04:45 Alkaline Phosphatase 53 Units/L (46-116) 01/22/23 04:45 Troponin I High Sens 8.7 ng/L (4.0-60.0) 01/19/23 08:15 Total Protein 6.1 g/dL (6.4-8.2) L 01/22/23 04:45 Albumin 2.7 g/dL (3.4-5.0) L 01/22/23 04:45 Globulin 3.4 g/dL (2.5-4.5) 01/22/23 04:45 Albumin/Globulin Ratio 0.8 Ratio (1.1-2.1) L 01/22/23 04:45 Vitamin B12 798 pg/mL (193-986) 01/20/23 04:20 Folate 2.5 ng/mL (>8.6) L 01/20/23 04:20 SARS-CoV-2 (PCR) Negative (NEGATIVE) 01/19/23 06:20 Influenza Type A (PCR) Negative (NEGATIVE) 01/19/23 06:20 Influenza Type B (PCR) Negative (NEGATIVE) 01/19/23 06:20 RSV (PCR) Negative (NEGATIVE) 01/19/23 06:20 Resp Viral Panel (PCR) See scanned report 01/19/23 09:18 Reason For Visit: SEPSIS, COPD EXACERBATION, BIBASILAR PNEU, Discharge Date Discharge Date: 01/22/23 Discharge Diagnosis All Active Problems (Updated 01/19/23 @ 08:02 by Jenifer Aranda) Sepsis (Acute) Pneumonia (Acute) COPD exacerbation (Acute) Hypoxia (Acute) Plan of Treatment: Continue with present treatment and follow up plan. Pt is to keep follow up appointment as instructed and take medications as ordered. Discharge Medications Discharge Medications: adhesive tape Adverse Reaction (Verified 01/19/23 06:26) Penicillins Adverse Reaction (Verified 01/19/23 06:26) CONTINUE taking the following medications amlodipine 5 mg tablet 5 mg PO QDAY 01/19/23 [History] anastrozole 1 mg tablet 1 mg PO QDAY 01/19/23 [History] atorvastatin 10 mg tablet 10 mg PO QPM 01/19/23 [History] carvedilol 12.5 mg tablet 12.5 mg PO BID 01/19/23 [History] clonidine HCl 0.2 mg tablet 0.2 mg PO BID 01/19/23 [History] linagliptin 5 mg tablet (Tradjenta) 5 mg PO QDAY 01/19/23 [History] montelukast 10 mg tablet 10 mg PO QDAY 01/19/23 [History] olmesartan 20 mg tablet 20 mg PO QDAY 01/19/23 [History] spironolactone 50 mg tablet 50 mg PO QDAY 01/19/23 [History] torsemide 20 mg tablet 20 mg PO QDAY 01/19/23 [History] New Prescriptions levofloxacin 750 mg tablet 750 mg PO Q24H 5 days #5 tabs 01/22/23 [Rx] prednisone 20 mg tablet 20 mg PO QDAY 5 days #5 tabs 01/22/23 [Rx] Discharge Disposition Discharge Disposition: Home Discharge Condition: Stable Discharge Plan Discharge Plan Hospital Course: Patient is a 67-year-old female admitted for pneumonia and COPD exacerbation. Her hospital treatment course included antibiotics Levaquin and Fortaz. She required supplemental oxygen via nasal cannula. Scheduled bronchodilators and prednisone. Patient responded well to treatment and symptoms significantly improved. On the day of discharge patient was back to to her baseline oxygen requirement of 2-3 L nasal cannula. Rx Levaquin and prednisone. Patient discharged in stable condition. Instructed to follow-up with PCP in 1 week. Patient Disposition: HOME, SELF-CARE Condition: Stable Health Concerns: Post Hospitalization: new medications and changes needed to prevent readmission or further decline. Pt educated and given instructions on all concerns. Care Plan Goals: Problem: Respiratory Complications Goal: Improved Uncomplicated Respiratory Status Instructions: Follow provided instructions. Follow up with primary physician as directed. Contact primary care physician or report to the closest Emergency Room if condition worsens. Plan of Treatment: Continue with present treatment and follow up plan. Pt is to keep follow up appointment as instructed and take medications as ordered. Prescriptions: New levofloxacin 750 mg tablet 750 mg PO Q24H 5 Days Qty: 5 0RF prednisone 20 mg tablet 20 mg PO QDAY 5 Days Qty: 5 0RF Continued olmesartan 20 mg tablet 20 mg PO QDAY montelukast 10 mg tablet 10 mg PO QDAY spironolactone 50 mg tablet 50 mg PO QDAY clonidine HCl 0.2 mg tablet 0.2 mg PO BID torsemide 20 mg tablet 20 mg PO QDAY carvedilol 12.5 mg tablet 12.5 mg PO BID Tradjenta 5 mg tablet 5 mg PO QDAY anastrozole 1 mg tablet 1 mg PO QDAY amlodipine 5 mg tablet 5 mg PO QDAY atorvastatin 10 mg tablet 10 mg PO QPM Follow ups/Referrals Follow ups/Referrals: DOMINIC BAREKR [STAFF PHYSICIAN] - 1 WEEK Instructions Instructions: Chronic Obstructive Pulmonary Disease Exacerbation, [id number], Hypoxia, Community-Acquired Pneumonia, Adult, [id number], Sepsis, Self Care, Adult Stand Alone Forms: Post Hospital Follow Up Care
== END 2023-01-22 12:35 | disposition home or self-care (01) | DRG 194 ==
LOC: ER 06:21 → ICU 08:02
PROVIDERS: ADMIT Obstetrics & Gynecology Obstetrics; ATTEND Obstetrics & Gynecology Obstetrics

== ENCOUNTER 2023-03-11 15:13 | Inpatient (IN) ==
[2023-03-11] MEDS ORDERED: ZOSYN VIAL 3.375 GRAMS 3.375 G in NS 100 ML IV 100 ML IV SCH (16:05)
[2023-03-11 16:08] LABS: ABG BASE EXCESS 8.3 mmol/L (-2.0-2.0)
[2023-03-11 16:09] LABS: ABG ALLEN TEST POS; ABG HCO3 37.4 mmol/L (22-26)
[2023-03-11 17:10] VITALS: BMI 43.0
[2023-03-11 17:10] LABS: EOSINOPHILS % (AUTO) 0.3 % (0.9-2.9); LYMPHOCYTES # (AUTO) 0.7 X10^3/uL (1.3-2.9); LYMPHOCYTES % (AUTO) 4.9 % (21.0-51.0); MONOCYTES # (AUTO) 0.6 x10^3/uL (0.3-0.8); WHITE BLOOD COUNT 14.8 X10^3/uL (3.6-10.0)
[2023-03-11 17:15] LABS: BASOPHILS % (AUTO) 0.2 % (0.2-1.0); HEMATOCRIT 34.2 % (36.0-47.0); HEMOGLOBIN 10.7 g/dL (12.0-16.0); MEAN CORPUSCULAR HEMOGLOBIN 27.6 pg (27.0-34.0); MEAN CORPUSCULAR HGB CONC 31.3 g/dL (33.0-35.0); MEAN CORPUSCULAR VOLUME 88.3 fL (80.0-100.0); MEAN PLATELET VOLUME 7.3 fL (7.4-11.0); MONOCYTES % (AUTO) 3.9 % (0.0-13.0); NEUTROPHILS # (AUTO) 13.4 x10^3/uL (2.2-4.8); NEUTROPHILS % (AUTO) 90.7 % (42.0-75.0); PLATELET COUNT 297 X10^3/uL (150.0-450.0); RED BLOOD COUNT 3.87 X10^6/uL (3.5-5.4); RED CELL DISTRIBUTION WIDTH 18.7 % (11.6-16.5)
[2023-03-11 17:24] LABS: ALBUMIN 3.2 g/dL (3.4-5.0); CALCIUM 8.3 mg/dL (8.5-10.1); CARBON DIOXIDE 35.7 mmol/L (21-32); COR CA(FOR HYPOALB) 8.9 mg/dL (8.5-10.1); CREATININE 1.41 mg/dL (0.55-1.02); POTASSIUM 4.6 mmol/L (3.5-5.1)
[2023-03-11 17:35] LABS: PLATELET MORPHOLOGY COMMENT NORMAL (NORMAL)
[2023-03-11] MEDS: LR 1,000 ML IV 1,000 ML IV SCH (17:50)
--- NOTE | 2023-03-11 18:12 | RAD ---
EXAM:CHEST, PA/LAT ADULTHISTORY:SOB, SUSPECTED BILATERAL PNA, POST-COVID; BEST LATERAL VIEW POSSIBLECOMPARISON:February 19, 2023TECHNIQUE:Two views of the chestFINDINGS:The heart is enlarged. There is widening of the mediastinum. There is pulmonary vascular congestion and cephalization. Interstitial and airspace infiltrates are present bilaterally.IMPRESSION:Decompensated congestive heart failure. Superimposed pneumonia may also be present.THIS IS AN ELECTRONICALLY VERIFIED FINAL [id number]/11/2023 6:09 PM - Electronically signed by Chapito Zeng MD
[2023-03-11] MEDS ORDERED: LASIX IVP ONE (20:00)
[2023-03-11] MEDS: COREG TAB 12.5 MG PO SCH (20:39)
[2023-03-11] MEDS: SNACK - Diabetic Appropriate PO SCH (20:47)
[2023-03-11] MEDS ORDERED: PEPCID TAB 40 MG PO PRN (21:00)
[2023-03-11] MEDS ORDERED: PEPCID TAB 40 MG PO SCH (21:00)
[2023-03-11] MEDS ORDERED: LANTUS SC SCH (21:00)
[2023-03-11] MEDS: CIPRO IV 400 MG PREMIX* 400 MG/200 ML IV.SOLN. IV SCH (21:19)
[2023-03-11] MEDS: ELIQUIS PO SCH (21:19)
[2023-03-11] MEDS: GLUCOPHAGE XR 24-HR PO SCH (21:20)
[2023-03-11] MEDS: ZINC SULFATE PO SCH (21:20)
[2023-03-11] MEDS: SOLU-Medrol 125 MG VIAL IVP SCH (21:20)
[2023-03-11] MEDS: THIAMINE HCL INJ IVP SCH (21:20)
[2023-03-11] MEDS: PULMICORT NEB TX 0.5 MG NEB SCH (21:30)
[2023-03-11] MEDS: BROVANA IN SCH (21:30)
[2023-03-12 04:49] LABS: BASOPHILS % (AUTO) 0.1 % (0.2-1.0); EOSINOPHILS % (AUTO) 0.2 % (0.9-2.9); HEMATOCRIT 33.8 % (36.0-47.0); HEMOGLOBIN 10.8 g/dL (12.0-16.0); LYMPHOCYTES # (AUTO) 0.4 X10^3/uL (1.3-2.9); MEAN CORPUSCULAR HEMOGLOBIN 28.3 pg (27.0-34.0); MEAN CORPUSCULAR HGB CONC 31.9 g/dL (33.0-35.0); MEAN CORPUSCULAR VOLUME 88.7 fL (80.0-100.0); MEAN PLATELET VOLUME 7.8 fL (7.4-11.0); MONOCYTES # (AUTO) 0.1 x10^3/uL (0.3-0.8); MONOCYTES % (AUTO) 0.8 % (0.0-13.0); NEUTROPHILS # (AUTO) 12.9 x10^3/uL (2.2-4.8); NEUTROPHILS % (AUTO) 95.9 % (42.0-75.0); PLATELET COUNT 280 X10^3/uL (150.0-450.0); RED BLOOD COUNT 3.81 X10^6/uL (3.5-5.4); RED CELL DISTRIBUTION WIDTH 18.5 % (11.6-16.5); WHITE BLOOD COUNT 13.5 X10^3/uL (3.6-10.0)
[2023-03-12 04:55] LABS: CALCIUM 8.1 mg/dL (8.5-10.1); CARBON DIOXIDE 33.6 mmol/L (21-32); COR CA(FOR HYPOALB) 8.9 mg/dL (8.5-10.1); CREATININE 1.31 mg/dL (0.55-1.02); TOTAL PROTEIN 7.2 g/dL (6.4-8.2)
[2023-03-12 04:56] LABS: POTASSIUM 5.9 mmol/L (3.5-5.1)
[2023-03-12 05:06] LABS: ANISOCYTOSIS SLIGHT; BAND NEUTROPHILS % 2 % (0-10); PLATELET MORPHOLOGY COMMENT NORMAL (NORMAL)
[2023-03-12] MEDS: SOLU-Medrol 125 MG VIAL IVP SCH (05:33)
[2023-03-12 07:19] LABS: ABG BASE EXCESS 6.8 mmol/L (-2.0-2.0)
[2023-03-12 07:20] LABS: ABG ALLEN TEST POS; ABG HCO3 37.3 mmol/L (22-26)
[2023-03-12] MEDS: LR 1,000 ML IV 1,000 ML IV SCH ×2 (08:30→16:27)
[2023-03-12] MEDS ORDERED: LASIX IVP SCH (09:00)
[2023-03-12] MEDS ORDERED: VITAMIN A PO SCH (09:00)
[2023-03-12] MEDS ORDERED: SOLU-Medrol 40 MG VIAL IVP SCH (09:00)
[2023-03-12] MEDS ORDERED: FARXIGA PO SCH (09:00)
[2023-03-12] MEDS ORDERED: SOLU-Medrol 125 MG VIAL IVP SCH ×2 (09:00→14:00)
[2023-03-12] MEDS: ZINC SULFATE PO SCH (09:10)
[2023-03-12] MEDS: VITAMIN D (1.25MG) PO SCH (09:11)
[2023-03-12] MEDS: PULMICORT NEB TX 0.5 MG NEB SCH ×2 (09:19→21:20)
[2023-03-12] MEDS: BROVANA IN SCH ×2 (09:19→21:20)
[2023-03-12] MEDS: CIPRO IV 400 MG PREMIX* 400 MG/200 ML IV.SOLN. IV SCH ×2 (09:37→20:53)
[2023-03-12] MEDS: GLUCOPHAGE XR 24-HR PO SCH ×2 (09:39→20:54)
[2023-03-12] MEDS: THIAMINE HCL INJ IVP SCH ×2 (09:39→20:55)
[2023-03-12] MEDS: COREG TAB 12.5 MG PO SCH ×2 (09:42→20:52)
[2023-03-12] MEDS: ENTRESTO 24/26 MG TABLET PO SCH ×2 (09:42→20:52)
[2023-03-12] MEDS: PEPCID TAB 40 MG PO SCH ×2 (09:43→20:53)
[2023-03-12] MEDS: NORVASC TAB 5 MG PO SCH (09:43)
[2023-03-12] MEDS: ALBUMIN HUMAN 25%- 100 ML 100 ML IV SCH (10:06)
[2023-03-12] MEDS: ELIQUIS PO SCH ×2 (10:08→20:53)
[2023-03-12 11:44] LABS: ABG BASE EXCESS 6.8 mmol/L (-2.0-2.0)
[2023-03-12 11:45] LABS: ABG ALLEN TEST POS; ABG HCO3 36.8 mmol/L (22-26)
[2023-03-12] MEDS ORDERED: BENICAR PO SCH (18:00)
[2023-03-12] MEDS: LASIX IVP SCH (20:52)
[2023-03-12] MEDS: SNACK - Diabetic Appropriate PO SCH (20:53)
[2023-03-12] MEDS: LANTUS SC SCH (20:54)
[2023-03-13 00:53] LABS: ABG BASE EXCESS 11.3 mmol/L (-2.0-2.0)
[2023-03-13 00:55] LABS: ABG HCO3 39.5 mmol/L (22-26)
[2023-03-13 05:19] LABS: BASOPHILS % (AUTO) 0.1 % (0.2-1.0); EOSINOPHILS % (AUTO) 0.2 % (0.9-2.9); HEMATOCRIT 32.2 % (36.0-47.0); HEMOGLOBIN 10.3 g/dL (12.0-16.0); LYMPHOCYTES # (AUTO) 0.8 X10^3/uL (1.3-2.9); LYMPHOCYTES % (AUTO) 5.3 % (21.0-51.0); MEAN CORPUSCULAR HEMOGLOBIN 28.1 pg (27.0-34.0); MEAN CORPUSCULAR HGB CONC 32.1 g/dL (33.0-35.0); MEAN CORPUSCULAR VOLUME 87.6 fL (80.0-100.0); MEAN PLATELET VOLUME 7.8 fL (7.4-11.0); MONOCYTES # (AUTO) 1.2 x10^3/uL (0.3-0.8); MONOCYTES % (AUTO) 7.8 % (0.0-13.0); NEUTROPHILS # (AUTO) 13.6 x10^3/uL (2.2-4.8); NEUTROPHILS % (AUTO) 86.6 % (42.0-75.0); PLATELET COUNT 306 X10^3/uL (150.0-450.0); RED BLOOD COUNT 3.68 X10^6/uL (3.5-5.4); RED CELL DISTRIBUTION WIDTH 18.3 % (11.6-16.5); WHITE BLOOD COUNT 15.7 X10^3/uL (3.6-10.0)
[2023-03-13 05:33] LABS: ALANINE AMINOTRANSFERASE 25 Units/L (12-78); ALBUMIN 3.4 g/dL (3.4-5.0); ALKALINE PHOSPHATASE 51 Units/L (46-116); ASPARTATE AMINO TRANSFERASE 12 Units/L (15-37); BLOOD UREA NITROGEN 39 mg/dL (7-18); CARBON DIOXIDE 37.1 mmol/L (21-32); CHLORIDE 102 mmol/L (98-107); COR NA(FOR HYPERGLY) 142 mmol/L (136-145); CREATININE 1.98 mg/dL (0.55-1.02); GLUCOSE 136 mg/dL (65-99); POTASSIUM 4.8 mmol/L (3.5-5.1); SODIUM 141 mmol/L (136-145); TOTAL PROTEIN 7.1 g/dL (6.4-8.2); eGFR NON BLACK RACES 27 (>60)
[2023-03-13] MEDS: PEPCID TAB 40 MG PO SCH ×2 (08:08→20:53)
[2023-03-13] MEDS: GLUCOPHAGE XR 24-HR PO SCH ×2 (08:08→20:51)
[2023-03-13] MEDS: ZINC SULFATE PO SCH (08:08)
[2023-03-13] MEDS: ENTRESTO 24/26 MG TABLET PO SCH ×2 (08:09→20:53)
[2023-03-13] MEDS: ELIQUIS PO SCH ×2 (08:09→20:53)
[2023-03-13] MEDS: NORVASC TAB 5 MG PO SCH (08:09)
[2023-03-13] MEDS: COREG TAB 12.5 MG PO SCH ×2 (08:09→20:52)
[2023-03-13] MEDS: CIPRO IV 400 MG PREMIX* 400 MG/200 ML IV.SOLN. IV SCH ×2 (08:10→21:03)
[2023-03-13] MEDS: THIAMINE HCL INJ IVP SCH ×2 (08:10→20:54)
[2023-03-13] MEDS: ALBUMIN HUMAN 25%- 100 ML 100 ML IV SCH (08:11)
[2023-03-13] MEDS: VITAMIN D (1.25MG) PO SCH (08:26)
[2023-03-13] MEDS ORDERED: FARXIGA PO SCH (09:00)
[2023-03-13] MEDS: PULMICORT NEB TX 0.5 MG NEB SCH ×2 (09:22→20:41)
[2023-03-13] MEDS: BROVANA IN SCH ×2 (09:22→20:41)
[2023-03-13] MEDS: LASIX IVP SCH (09:30)
--- NOTE | 2023-03-13 12:41 | RAD ---
EXAM:Portable AP chestHISTORY:Rule out bacterial pneumoniaCOMPARISON:March 11, 2023FINDINGS:Stable cardiac prominence. There is interval development of an indistinct parenchymal density adjacent to the right lower heart border. There is no evidence for additional consolidation, or pleural fluid. Appearance of the pulmonary vasculature on this portable study does not suggest concha CHF.IMPRESSION:Developing pulmonary density adjacent to the right lower heart border is consistent with a focus of pneumonia or atelectasis. Follow-up suggested.THIS IS AN ELECTRONICALLY VERIFIED FINAL [id number]/13/2023 12:38 PM - Electronically signed by Luis Sood MD
[2023-03-13] MEDS: NovoLIN R (or HumuLIN R) SUBCUT PRN (12:59)
[2023-03-13] MEDS: LR 1,000 ML IV 1,000 ML IV SCH (16:42)
[2023-03-13] MEDS ORDERED: SNACK - Diabetic Appropriate PO SCH (20:00)
[2023-03-13] MEDS: SNACK - Diabetic Appropriate PO SCH (20:58)
[2023-03-13] MEDS: LANTUS SC SCH (21:01)
[2023-03-14] MEDS: ENTRESTO 24/26 MG TABLET PO SCH ×2 (04:50→08:56)
[2023-03-14 05:34] LABS: BASOPHILS % (AUTO) 0.4 % (0.2-1.0); EOSINOPHILS # (AUTO) 0.2 x10^3/uL (0.0-0.2); EOSINOPHILS % (AUTO) 2.1 % (0.9-2.9); HEMOGLOBIN 9.8 g/dL (12.0-16.0); LYMPHOCYTES # (AUTO) 1.1 X10^3/uL (1.3-2.9); LYMPHOCYTES % (AUTO) 10.8 % (21.0-51.0); MEAN CORPUSCULAR HEMOGLOBIN 28.2 pg (27.0-34.0); MEAN CORPUSCULAR HGB CONC 32.5 g/dL (33.0-35.0); MEAN CORPUSCULAR VOLUME 86.9 fL (80.0-100.0); MEAN PLATELET VOLUME 7.8 fL (7.4-11.0); MONOCYTES # (AUTO) 0.8 x10^3/uL (0.3-0.8); MONOCYTES % (AUTO) 7.3 % (0.0-13.0); NEUTROPHILS # (AUTO) 8.2 x10^3/uL (2.2-4.8); NEUTROPHILS % (AUTO) 79.4 % (42.0-75.0); PLATELET COUNT 264 X10^3/uL (150.0-450.0); RED BLOOD COUNT 3.46 X10^6/uL (3.5-5.4); RED CELL DISTRIBUTION WIDTH 18.2 % (11.6-16.5); WHITE BLOOD COUNT 10.4 X10^3/uL (3.6-10.0)
[2023-03-14 05:46] LABS: ALANINE AMINOTRANSFERASE 21 Units/L (12-78); ALBUMIN 3.2 g/dL (3.4-5.0); ALKALINE PHOSPHATASE 42 Units/L (46-116); ASPARTATE AMINO TRANSFERASE 12 Units/L (15-37); BLOOD UREA NITROGEN 30 mg/dL (7-18); CARBON DIOXIDE 37.7 mmol/L (21-32); CHLORIDE 103 mmol/L (98-107); COR CA(FOR HYPOALB) 8.6 mg/dL (8.5-10.1); GLUCOSE 107 mg/dL (65-99); POTASSIUM 4.2 mmol/L (3.5-5.1); SODIUM 143 mmol/L (136-145); TOTAL PROTEIN 6.3 g/dL (6.4-8.2); eGFR NON BLACK RACES 37 (>60)
[2023-03-14] MEDS: FARXIGA PO SCH ×2 (07:20→09:01)
[2023-03-14] MEDS: GLUCOPHAGE XR 24-HR PO SCH ×2 (09:00→20:49)
[2023-03-14] MEDS: NORVASC TAB 5 MG PO SCH (09:01)
[2023-03-14] MEDS: COREG TAB 12.5 MG PO SCH ×2 (09:01→20:49)
[2023-03-14] MEDS: ZINC SULFATE PO SCH (09:02)
[2023-03-14] MEDS: THIAMINE HCL INJ IVP SCH ×2 (09:03→20:49)
[2023-03-14] MEDS: ALBUMIN HUMAN 25%- 100 ML 100 ML IV SCH (09:16)
[2023-03-14] MEDS: CIPRO IV 400 MG PREMIX* 400 MG/200 ML IV.SOLN. IV SCH ×2 (09:17→20:50)
[2023-03-14] MEDS: PULMICORT NEB TX 0.5 MG NEB SCH ×2 (09:27→20:16)
[2023-03-14] MEDS: BROVANA IN SCH ×2 (09:27→20:15)
[2023-03-14] MEDS: ELIQUIS PO SCH ×2 (09:29→20:49)
[2023-03-14] MEDS: VITAMIN D (1.25MG) PO SCH (09:30)
[2023-03-14] MEDS: PEPCID TAB 40 MG PO SCH (09:38)
[2023-03-14] MEDS ORDERED: ENTRESTO 49/51 MG TABLET PO SCH (09:45)
[2023-03-14] MEDS ORDERED: ENTRESTO 24/26 MG TABLET PO NR (10:00)
--- NOTE | 2023-03-14 11:33 | RAD ---
EXAM:CHEST, 1 VIEWHISTORY:PNEUMONIA, HYPOXIA, COVID +; CHFCOMPARISON:03/13/2023FINDINGS:Abnorma l opacity is present in the lower right lung. This is probably in the right middle lobe as it obscures the right heart border. Could be pneumonia or atelectasis and may have progressed slightly since yesterday.There are a few linear areas in the left lung base which are less well seen. Probably atelectasis and unchanged from prior study.Upper lungs clear.The heart size is magnified.The bones are unremarkable.EKG leads are noted.IMPRESSION:1. Progressed right middle lobe pneumonia or atelectasisTHIS IS AN ELECTRONICALLY VERIFIED FINAL [id number]/14/2023 11:30 AM - Electronically signed by [place] Aranda MD
[2023-03-14] MEDS: LR 1,000 ML IV 1,000 ML IV SCH (16:23)
[2023-03-14] MEDS: NovoLIN R (or HumuLIN R) SUBCUT PRN ×2 (16:36→20:51)
[2023-03-14] MEDS: SNACK - Diabetic Appropriate PO SCH (20:40)
[2023-03-14] MEDS: LANTUS SC SCH (20:50)
[2023-03-14] MEDS: ENTRESTO 49/51 MG TABLET PO SCH (20:53)
[2023-03-15 04:37] LABS: ABG BASE EXCESS 9.5 mmol/L (-2.0-2.0)
[2023-03-15 04:38] LABS: ABG HCO3 35.3 mmol/L (22-26)
[2023-03-15 04:39] LABS: ABG ALLEN TEST POS
[2023-03-15 05:07] LABS: BASOPHILS # (AUTO) 0.1 X10^3/uL (0.0-0.1); BASOPHILS % (AUTO) 0.6 % (0.2-1.0); EOSINOPHILS # (AUTO) 0.3 x10^3/uL (0.0-0.2); EOSINOPHILS % (AUTO) 3.3 % (0.9-2.9); HEMATOCRIT 29.1 % (36.0-47.0); HEMOGLOBIN 9.6 g/dL (12.0-16.0); LYMPHOCYTES # (AUTO) 1.1 X10^3/uL (1.3-2.9); LYMPHOCYTES % (AUTO) 14.1 % (21.0-51.0); MEAN CORPUSCULAR HEMOGLOBIN 28.2 pg (27.0-34.0); MEAN CORPUSCULAR HGB CONC 32.9 g/dL (33.0-35.0); MEAN CORPUSCULAR VOLUME 85.8 fL (80.0-100.0); MEAN PLATELET VOLUME 7.6 fL (7.4-11.0); MONOCYTES # (AUTO) 0.8 x10^3/uL (0.3-0.8); MONOCYTES % (AUTO) 9.5 % (0.0-13.0); NEUTROPHILS # (AUTO) 5.7 x10^3/uL (2.2-4.8); NEUTROPHILS % (AUTO) 72.5 % (42.0-75.0); PLATELET COUNT 239 X10^3/uL (150.0-450.0); RED BLOOD COUNT 3.39 X10^6/uL (3.5-5.4); RED CELL DISTRIBUTION WIDTH 17.6 % (11.6-16.5); WHITE BLOOD COUNT 7.9 X10^3/uL (3.6-10.0)
[2023-03-15 05:14] LABS: ALANINE AMINOTRANSFERASE 19 Units/L (12-78); ALBUMIN 3.2 g/dL (3.4-5.0); ALKALINE PHOSPHATASE 38 Units/L (46-116); ASPARTATE AMINO TRANSFERASE 13 Units/L (15-37); BLOOD UREA NITROGEN 24 mg/dL (7-18); CALCIUM 8.1 mg/dL (8.5-10.1); CARBON DIOXIDE 38.5 mmol/L (21-32); CHLORIDE 104 mmol/L (98-107); COR CA(FOR HYPOALB) 8.7 mg/dL (8.5-10.1); CREATININE 1.51 mg/dL (0.55-1.02); GLUCOSE 76 mg/dL (65-99); POTASSIUM 4.1 mmol/L (3.5-5.1); SODIUM 142 mmol/L (136-145); eGFR NON BLACK RACES 36 (>60)
[2023-03-15] MEDS: COREG TAB 12.5 MG PO SCH (08:40)
[2023-03-15] MEDS: FARXIGA PO SCH (08:40)
[2023-03-15] MEDS: GLUCOPHAGE XR 24-HR PO SCH ×2 (08:40→20:55)
[2023-03-15] MEDS: ELIQUIS PO SCH ×2 (08:40→20:55)
[2023-03-15] MEDS: PEPCID TAB 40 MG PO SCH (08:41)
[2023-03-15] MEDS: ALBUMIN HUMAN 25%- 100 ML 100 ML IV SCH (08:41)
[2023-03-15] MEDS: THIAMINE HCL INJ IVP SCH (08:41)
[2023-03-15] MEDS: NORVASC TAB 5 MG PO SCH (08:41)
[2023-03-15] MEDS: CIPRO IV 400 MG PREMIX* 400 MG/200 ML IV.SOLN. IV SCH ×2 (08:41→20:52)
[2023-03-15] MEDS: ZINC SULFATE PO SCH (08:41)
[2023-03-15] MEDS: VITAMIN D (1.25MG) PO SCH (08:42)
[2023-03-15] MEDS: ENTRESTO 49/51 MG TABLET PO SCH (08:42)
[2023-03-15] MEDS: PULMICORT NEB TX 0.5 MG NEB SCH ×2 (08:59→20:00)
[2023-03-15] MEDS: BROVANA IN SCH ×2 (08:59→20:00)
--- NOTE | 2023-03-15 09:46 | RAD ---
EXAM:CHEST, 1 VIEWHISTORY:CHF, POSSIBLE PNEUMONIA; HYPOXIA, COVID ;COMPARISON:03/14/2023.TECHNIQUE:AP view of the chestFINDINGS:Series stable similar-appearing left worse than right base opacities. Can not exclude a small left pleural effusion. No pneumothorax.IMPRESSION:No significant change compared to prior radiograph. Bibasilar opacities may represent atelectasis or pneumonia. Can not exclude a small left pleural effusion.THIS IS AN ELECTRONICALLY VERIFIED FINAL [id number]/15/2023 9:43 AM - Electronically signed by Jamie Deluna MD
[2023-03-15] MEDS: ARIMIDEX PO SCH (09:52)
[2023-03-15] MEDS: DEMADEX PO SCH (09:52)
[2023-03-15] MEDS: BENICAR PO SCH (09:52)
[2023-03-15] MEDS ORDERED: ALDACTONE TAB 25 MG PO SCH (10:00)
[2023-03-15] MEDS: LR 1,000 ML IV 1,000 ML IV SCH (16:43)
[2023-03-15] MEDS ORDERED: ZADITOR EYE DROPS RIGHTEYE PRN (16:45)
[2023-03-15] MEDS: COREG TAB 25 MG PO SCH (20:54)
[2023-03-15] MEDS: SNACK - Diabetic Appropriate PO SCH (20:59)
[2023-03-15] MEDS: NovoLIN R (or HumuLIN R) SUBCUT PRN (21:00)
[2023-03-15] MEDS ORDERED: LANTUS SC SCH (21:00)
[2023-03-16 00:04] VITALS: O2SAT 96
[2023-03-16] MEDS ORDERED: IMODIUM CAP 2 MG PO ONE (02:08)
[2023-03-16 05:08] LABS: BASOPHILS # (AUTO) 0.1 X10^3/uL (0.0-0.1); BASOPHILS % (AUTO) 0.7 % (0.2-1.0); EOSINOPHILS # (AUTO) 0.3 x10^3/uL (0.0-0.2); EOSINOPHILS % (AUTO) 3.9 % (0.9-2.9); HEMATOCRIT 29.4 % (36.0-47.0); HEMOGLOBIN 9.7 g/dL (12.0-16.0); LYMPHOCYTES % (AUTO) 11.8 % (21.0-51.0); MEAN CORPUSCULAR HEMOGLOBIN 28.4 pg (27.0-34.0); MEAN CORPUSCULAR HGB CONC 33.1 g/dL (33.0-35.0); MEAN CORPUSCULAR VOLUME 85.7 fL (80.0-100.0); MEAN PLATELET VOLUME 7.5 fL (7.4-11.0); MONOCYTES # (AUTO) 0.7 x10^3/uL (0.3-0.8); MONOCYTES % (AUTO) 8.6 % (0.0-13.0); NEUTROPHILS # (AUTO) 6.2 x10^3/uL (2.2-4.8); PLATELET COUNT 234 X10^3/uL (150.0-450.0); RED BLOOD COUNT 3.43 X10^6/uL (3.5-5.4); RED CELL DISTRIBUTION WIDTH 17.9 % (11.6-16.5); WHITE BLOOD COUNT 8.2 X10^3/uL (3.6-10.0)
[2023-03-16 05:28] LABS: ALBUMIN 3.2 g/dL (3.4-5.0); CALCIUM 7.9 mg/dL (8.5-10.1); CARBON DIOXIDE 39.5 mmol/L (21-32); COR CA(FOR HYPOALB) 8.5 mg/dL (8.5-10.1); CREATININE 1.6 mg/dL (0.55-1.02)
[2023-03-16] MEDS: PULMICORT NEB TX 0.5 MG NEB SCH (08:34)
[2023-03-16] MEDS: BROVANA IN SCH (08:34)
[2023-03-16] MEDS ORDERED: ALDACTONE TAB 25 MG PO SCH (09:00)
[2023-03-16] MEDS: BENICAR PO SCH (09:11)
[2023-03-16] MEDS: DEMADEX PO SCH (09:11)
[2023-03-16] MEDS: GLUCOPHAGE XR 24-HR PO SCH (09:12)
[2023-03-16] MEDS: COREG TAB 25 MG PO SCH (09:12)
[2023-03-16] MEDS: ELIQUIS PO SCH (09:12)
[2023-03-16] MEDS: ARIMIDEX PO SCH (09:12)
[2023-03-16] MEDS: NORVASC TAB 5 MG PO SCH (09:12)
[2023-03-16] MEDS: FARXIGA PO SCH (09:12)
[2023-03-16] MEDS: ALBUMIN HUMAN 25%- 100 ML 100 ML IV SCH (09:13)
[2023-03-16 09:35] VITALS: PULSE 77
[2023-03-16 09:38] VITALS: BP 134/67; RESP 22; TEMP 98.7
[2023-03-16] MEDS: CIPRO IV 400 MG PREMIX* 400 MG/200 ML IV.SOLN. IV SCH (11:20)
== END 2023-03-16 11:25 | disposition home or self-care (01) | DRG 177 ==
LOC: ICU → OBSVTOIN 15:17 → MED/SURG 03-15 17:31
PROVIDERS: ADMIT Obstetrics & Gynecology Obstetrics; ATTEND Obstetrics & Gynecology Obstetrics
DX: J44.9 Chronic obstructive pulmonary disease, unspecified; R06.02 Shortness of breath; R79.82 Elevated C-reactive protein (CRP); R09.02 Hypoxemia; I50.30 Unspecified diastolic (congestive) heart failure; R26.89 Other abnormalities of gait and mobility; E11.65 Type 2 diabetes mellitus with hyperglycemia; I11.0 Hypertensive heart disease with heart failure; U07.1 COVID-19; J13 Pneumonia due to Streptococcus pneumoniae